=== PATIENT | male | born 1980 | race Caucasian/White ===

== ENCOUNTER 2016-05-29 06:01 | Emergency (ER) | payer MEDICARE, MEDICAID ==
[~2016-05-29] VITALS: Ht 185.4 cm; Wt 105.5 kg
[~2016-05-29 06:01] MED LIST: HYDR-906 PO; IBUP-1542 PO
[2016-05-29 06:17] VITALS: Ht 185.4 cm; Wt 105.5 kg
== END 2016-05-29 07:25 | disposition left against medical advice (07) ==
LOC: E/R 06:01
DX: Z53.21 Procedure and treatment not carried out due to patient leaving prior to being seen by health care provider (principal)